=== PATIENT | female | born 1980 | race Caucasian/White ===

== ENCOUNTER 2022-08-29 08:12 | Day surgery (SDC) | payer OTHER ==
[2022-08-27 10:53] VITALS: BMI 24.3
[2022-08-29] MEDS ORDERED: VANCOMYCIN 1,000 MG VIAL (RESTRICTED TO ID ONLY) ONE (08:33)
[2022-08-29] MEDS ORDERED: ACETAMINOPHEN INJECTION 100 ML IVPB ONE (09:33)
[2022-08-29] MEDS ORDERED: BUPIVACAINE HCL/PF 0.5% (5 MG/ML) 30 ML VIAL IJ ONE (09:33)
[2022-08-29] MEDS ORDERED: DEXAMETHASONE SOD PHOSPHATE/PF 10 MG/ML SDV ONE (09:33)
[2022-08-29] MEDS ORDERED: SUCCINYLCHOLINE CHLORIDE 200 MG/10 ML SYRINGE ONE (09:35)
[2022-08-29] MEDS ORDERED: PROPOFOL 40 ML ONE (09:35)
[2022-08-29] MEDS ORDERED: MIDAZOLAM HCL 2 MG/2 ML SINGLE DOSE VIAL ONE ×2 (09:36)
[2022-08-29] MEDS ORDERED: ONDANSETRON 4 MG/2 ML VIAL ONE (10:11)
[2022-08-29] MEDS ORDERED: ceFAZolin SODIUM 1 GM VIAL ONE ×2 (10:11)
[2022-08-29] MEDS ORDERED: DEXAMETHASONE SOD PHOSPHATE 4 MG/1 ML VIAL ONE (10:11)
[2022-08-29] MEDS ORDERED: BUPIVACAINE HCL/EPINEPHRINE/PF 30 ML VIAL IJ ONE ×2 (10:28→10:32)
[2022-08-29] MEDS ORDERED: ROCURONIUM BROMIDE 50 MG/5 ML SYRINGE ONE (10:36)
[2022-08-29] MEDS ORDERED: SUGAMMADEX SODIUM 200 MG/2 ML VIAL ONE (10:57)
[2022-08-29] MEDS ORDERED: TRANEXAMIC ACID 1000 MG/10 ML VIAL ONE (13:03)
[2022-08-29] MEDS ORDERED: oxyCODONE HCL 5 MG TABLET PO PRN ×2 (13:55)
[2022-08-29] MEDS ORDERED: ACETAMINOPHEN 325 MG TABLET (FP) PO PRN (13:55)
[2022-08-29] MEDS ORDERED: ONDANSETRON 4 MG/2 ML VIAL IVPUSH PRN (13:55)
[2022-08-29] MEDS ORDERED: LACTATED RINGERS SOLUTION 1,000 ML IV SCH (14:00)
[2022-08-29 15:08] VITALS: RESP 16
[2022-08-29 15:18] VITALS: TEMP 97.9
[2022-08-29 17:03] VITALS: BP 114/65; PULSE 54
== END 2022-08-29 16:05 | disposition home or self-care (01) ==
LOC: FASU 08:12
PROVIDERS: ATTEND Orthopaedic Surgery
PROC: 0PSF04Z Reposition Right Humeral Shaft with Internal Fixation Device, Open Approach (ICD-10-PCS; principal; 2022-08-29 10:33)
DX: S42.021A Displaced fracture of shaft of right clavicle, initial encounter for closed fracture (principal); X58.XXXA Exposure to other specified factors, initial encounter; Y93.9 Activity, unspecified; Y92.9 Unspecified place or not applicable
CPT/HCPCS: 23515; C1713; 73000-TC-RT-FY; 84703; 94760